=== PATIENT | male | born 1995 | race Two or more races ===

== ENCOUNTER → 2020-12-14 10:51 | Outpatient (CLI) | payer OTHER | END | disposition home or self-care (01) | LOC: LAB 10:51 | PROVIDERS: ATTEND General Practice | DX: Z20.828 Contact with and (suspected) exposure to other viral communicable diseases (principal) ==

== ENCOUNTER 2021-04-10 16:10 | Outpatient (CLI) | payer OTHER | END 2021-04-10 16:14 | disposition home or self-care (01) | LOC: LAB 16:10 | PROVIDERS: ATTEND Emergency Medicine | DX: R05 Cough (principal); R50.9 Fever, unspecified; R06.02 Shortness of breath; Z03.818 Encounter for observation for suspected exposure to other biological agents ruled out; Z20.822 Contact with and (suspected) exposure to COVID-19 ==